=== PATIENT | female | born 1970 | race Caucasian/White ===

== ENCOUNTER 2024-07-27 14:16 | Emergency (ER) | payer MEDICAID ==
[~2024-07-27] VITALS: Ht 175.3 cm; Wt 90.9 kg
[~2024-07-27 14:16] MED LIST: METH-798 PO; NAPR-1168 PO
[2024-07-27 14:21] VITALS: BP 159/90; PULSE 94; RESP 18; O2SAT 96
--- NOTE | 2024-07-27 14:41 | Physician Documentation ---
History of Present Illness ~ Chief Complaint: Elbow pain Stated Complaint: R ARM PAIN Time Seen by MD: 17:12 Primary Medical Doctor: none HPI This 53-year-old female history presents with two days of right elbow pain onset after lifting a heavy object, patient reports a previous injury to the arm in 2018 that she reports as a fracture that poorly healed. Patient reports she was seen at [facility] yesterday for the same concern and was medicated with Toradol. Tetanus within 5 years: Yes Medication Reconciliation Allergies: Coded Allergies: amoxicillin (Verified Allergy, Unknown, 07/27/24) meperidine (Unverified Allergy, Unknown, 07/27/24) meperidine HCl (Verified Allergy, Unknown, 07/27/24) poison oak extract (Verified Allergy, Unknown, 07/27/24) Scheduled Methocarbamol (Methocarbamol), 1 TAB PO Q12H, (Reported) Naproxen (Naproxen), 1 TAB PO Q12H, (Reported) Past Medical History Past Medical History: Migraine Past Surgical History: hysterectomy, orthopedic surgeries, other Alcohol Use: Occasionally Drug Use: none Lives with: S/O Lives In: Home Review of Systems ROS Right elbow pain as stated above in the HPI, otherwise all systems are reviewed and negative. Physical Exam Vital Signs: Temperature: 97.8, Source: Temporal, Heart Rate: 94, Respiratory Rate: 18, BP: 159/90, Pulse Oximetry: 96, Weight: 90.900 Physical Exam VITALS: Reviewed and as above. GENERAL: Alert, nontoxic appearing, no apparent distress. RESPIRATORY: No increased work of breathing, no respiratory distress, speaking in full clear sentences MUSCULOSKELETAL: Right elbow in sling, mild swelling to right forearm and hand, capillary refill brisk in fingers of the right hand, strong right radial pulse, sensation intact in right hand, wrist the anterior and medial aspects of elbow, no tenderness to the posterior aspect of the elbow, erythema or ecchymosis, ROM limited by pain however not exquisitely tender to range of motion Progress Results/Orders Results/Orders Vital Signs 07/27/24 07/27/24 14:21 17:47 Temp 97.8 97.8 Pulse 94 Resp 18 B/P (MAP) 159/90 Pulse Ox 96 EKG/XRAY/CT/US/VASC/MRI Bone/Soft Tissue X-Ray (Ext.) : Additional Comment Indication: ELBOW PAIN RIGHT Technique: 3 views right elbow Comparison: None FINDINGS/IMPRESSION: No radiographic evidence for acute fracture or dislocation. No significant soft tissue edema. No radiopaque foreign body. Electronically Signed by:NELLIE LAW MD Date & Time: 07/27/241508 Dictated by: NELLIE LAW MD Dictation date and time: 07/27/24 150 I have reviewed and agree with the radiology report. I have reviewed and interpreted the imaging as: No fracture or dislocation Medical Decision Making Findings This 53-year-old female presented to the right elbow pain after exacerbating a previous injury to right elbow, physical exam was reassuring against septic joint as it was not exquisitely tender to palpation or range of motion, range of motion was mostly intact with pain only elicited at the extremes extension or flexion. Additionally limb was neurovascularly intact distal to the injury. X- ray did not demonstrate evidence of fracture or dislocation. I suspect this is soft tissue injury due to of over exertion. Remainder of physical exam was benign patient is otherwise well-appearing. Patient is appropriate for outpati ent follow up. It is reassuring patient has follow up with primary care provider next week, patient reports she already has ibuprofen prescribed by primary care provider therefore declines further prescription. Patient provided follow up instructions, return to care precautions, and home care instructions. Elbow Diff Dx:Considerations: Include: Abrasion, Arthritis, Contustion, DJD, Fracture-humerus, Fracture-radial head, Fracture-radius, Fracture-ulna, Gout, Hematoma, Laceration, Neurovascular injury, Olecranon bursitis, Osteomyelitis, Rheumatoid arthritis, Septic, Sprain Departure Disposition: 01 HOME / SELF CARE / HOMELESS Impression: Primary Impression: Elbow pain, right Condition: Improved Discharge Instructions: RICE Therapy for Routine Care of Injuries, [id number] Additional Instructions: Please see the attached home care instructions. Follow up as scheduled with your primary care provider, please use the previously prescribed medications from your primary care provider for pain. Please return to the emergency department for any new or worsening concerning symptoms. Referrals: NO PRIMARY CARE PROVIDER (PCP) Education Educated: Patient Educated regarding: diagnosis, treatment, prognosis, need for follow up Additional Comment Medical Screen Exam History: This 53-year-old female history presents with two days of right elbow pain onset after lifting a heavy object, patient reports a previous injury to the arm in 2018 that she reports as a fracture that poorly healed. Patient reports she was seen at [facility] yesterday for the same concern and was medicated with Toradol. Exam: VITALS: Reviewed and as above. GENERAL: Alert, nontoxic appearing, no apparent distress. RESPIRATORY: No increased work of breathing, no respiratory distress, speaking in full clear sentences MUSCULOSKELETAL: Right sling, mild swelling to right hand, capillary refill brisk in fingers of the right hand, strong right radial pulse, sensation intact in right hand MSE performed in triage and patient returned to ED lobby by nursing staff to await available ED room The note accurately reflects work and decisions made by me.MARY JANE Perdue 07/27/24 14:41 Signature Scribe Signature: No scribe Attestation: The note accurately reflects work and decisions made by me.MARY JANE Perdue 07/28/24 02:35 DANIELLE CAVAZOS Jul 27, 2024 14:41
--- NOTE | 2024-07-27 15:11 | RADIOLOGY REPORT ---
Indication: ELBOW PAIN RIGHT Technique: 3 views right elbow Comparison: None FINDINGS/IMPRESSION: No radiographic evidence for acute fracture or dislocation. No significant soft tissue edema. No rad iopaque foreign body.
[2024-07-27 17:47] VITALS: TEMP 97.8
== END 2024-07-27 17:49 | disposition home or self-care (01) ==
LOC: ER 14:16
DX: M25.521 Pain in right elbow (principal); G43.909 Migraine, unspecified, not intractable, without status migrainosus; Z88.0 Allergy status to penicillin; Z88.5 Allergy status to narcotic agent; Z90.710 Acquired absence of both cervix and uterus; X50.0XXA Overexertion from strenuous movement or load, initial encounter; Y93.89 Activity, other specified; Y92.89 Other specified places as the place of occurrence of the external cause; Y99.8 Other external cause status
CPT/HCPCS: 73080; 99283